=== PATIENT | female | born 2000 | race Caucasian/White ===

== ENCOUNTER 2019-10-24 21:03 | Emergency (ER) | payer SELFPAY ==
[2019-10-24 21:04] VITALS: BP 127/79; PULSE 108; RESP 16; TEMP 37.3; O2SAT 100; BMI 34.2
--- NOTE | 2019-10-24 21:28 | EKG12_ITS ---
Test Reason : DYSRHYTHMIA Blood Pressure : / mmHG Vent. Rate : 116 BPM Atrial Rate : 116 BPM P-R Int : 144 ms QRS Dur : 080 ms QT Int : 326 ms P-R-T Axes : 049 036 027 degrees QTc Int : 453 ms Sinus tachycardia Otherwise normal ECG Confirmed by BHARGAV PRESTON, JACKLYN ([id number]), film editor supervisor BRET LAST ([id number]) on 10/29/2019 11:29:14 AM Referred By: EMILY Confirmed By:JACKLYN DURANT MD
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
[2019-10-24] MEDS: Diphth,Pertuss(Acell),Tet Vac 0.5 ML Vial IM (22:06)
[2019-10-24 22:20] LABS: Absolute Lymphocyte Count 1.88 X10^3/uL (0.83-4.51); Basophil# 0.02 X10^3/uL; Basophil% 0.2 % (0-1); Eosinophil# 0.02 X10^3/uL; Eosinophils% 0.2 % (0-5); Hematocrit 35.6 % (37-47); Hemoglobin 11.2 g/dL (12.0-15.0); Lymphocyte # 1.88 X10^3/ul (4.0); Lymphocyte % 19.5 % (19-41); Mean Corp Hgb Conc 31.5 g/dL (32-36); Mean Corpuscular Hgb 27.7 pg (27.0-32.0); Mean Corpuscular Volume 87.9 fL (81-99); Mean Platelet Vol. 10.1 fl (6.2-12.0); Monocyte# 0.73 X10^3/uL; Monocyte% 7.6 % (0-10); NRBC Flagged by Analyzer 0 % (0-5); Neutrophil # 6.95 X10^3/uL (2.7-7.7); Neutrophil % 72.1 % (47-70); Platelet Count 255 K/mm3 (150-450); RBC Distribution Width CV 12.3 % (11.6-14.6); RBC Distribution Width SD 39.6 fl (35.1-43.9); Red Blood Count 4.05 M/mm3 (4.2-5.4); White Blood Count 9.6 K/mm3 (4.4-11.0)
[2019-10-24 22:38] LABS: Internal QC Validated? YES +Cl - CLEAR BKGD; Pregnancy, Serum, hCG Quali. NEGATIVE Negative
[2019-10-24 22:41] LABS: Anion Gap 7 (5-15); BUN 14 mg/dL (7-18); BUN/Creat Ratio 15.1 RATIO (10-20); Calcium,Total 8.7 mg/dL (8.5-10.1); Chloride 106 mmol/L (98-107); Creatinine, Serum 0.93 mg/dL (0.55-1.02); EST Glomerular Filtration Rate 81 mL/min (>60); Est Glom Filt Rate - Afr Amer 99 mL/min (>60); Estimated Creatinine Clearance 86.83 ml/min; Glucose 98 mg/dL (74-106); Potassium 3.2 mmol/L (3.5-5.1); Sodium Level 139 mmol/L (136-145)
[2019-10-24 23:42] VITALS: BP 130/74; PULSE 109; RESP 18; O2SAT 98
[2019-10-24 23:44] LABS: Bacteria 0 SEEN /hpf (None Seen); Mucous, Urine 0 SEEN /hpf (<or=2+)
[2019-10-24 23:45] LABS: Color, Urine Yellow (Yellow); Glucose, Dipstick Normal (Normal); Leukocyte Esterase-Dipstick 100 /ul (Negative); Nitrite-Dipstick Negative (Negative); Occult Blood-Urine 25 /ul (Negative); Protein-Dipstick 15 mg/dl (Negative); Urine Bilirubin Dipstick Negative (Negative); Urine Clarity Sl. Cloudy (Clear); Urine Urobilinogen Normal (Normal)
[2019-10-25 00:03] LABS: Ketone-Dipstick 150 mg/dl (Negative)
[2019-10-25 00:20] LABS: Red Blood Cells-Urine 5-10 SEEN /hpf (0-5); Squamous Epithelial Cells - UA 25-50 SEEN /hpf (5-10); White Blood Cells 10-25 SEEN /hpf (0-5)
[2019-10-25 00:29] VITALS: BP 113/68; PULSE 101; RESP 16; O2SAT 98
== END 2019-10-25 01:02 | disposition home or self-care (01) ==
PROVIDERS: Emergency Provider Emergency Medicine
DX: S06.0X9A Concussion with loss of consciousness of unspecified duration, initial encounter (principal); S37.012A Minor contusion of left kidney, initial encounter; S16.1XXA Strain of muscle, fascia and tendon at neck level, initial encounter; S30.1XXA Contusion of abdominal wall, initial encounter; S20.219A Contusion of unspecified front wall of thorax, initial encounter; S60.416A Abrasion of right little finger, initial encounter; V43.62XA Car passenger injured in collision with other type car in traffic accident, initial encounter; Y93.9 Activity, unspecified; Y92.9 Unspecified place or not applicable; Y99.9 Unspecified external cause status; Z23 Encounter for immunization; E66.9 Obesity, unspecified; Z97.5 Presence of (intrauterine) contraceptive device
CPT/HCPCS: 70450; 71045; 72125; 74177; 80048; 81001; 84703; 85025; 90471; 90715; 93005; 99285; Q9967; A4216

== ENCOUNTER 2020-12-17 21:50 | Emergency (ER) | payer OTHER, SELFPAY ==
[2020-12-17 21:50] VITALS: BP 137/77; PULSE 98; RESP 16; TEMP 36.1; O2SAT 100; BMI 35.4
--- NOTE | 2020-12-17 22:37 | CT_ITS ---
EXAM: CT Head Without Intravenous Contrast CLINICAL INDICATION: 20 years old, Female; headache TECHNIQUE: Multiple axial images were obtained of the head without intravenous contrast. This CT exam was performed using one or more of the following dose reduction techniques: automated exposure control, adjustment of the mA and/or kV according to patient size, and/or use of iterative reconstruction technique. This report was created using [employer] report generation technology. COMPARISON: None. FINDINGS: Brain and extra-axial spaces: Unremarkable. No intra- or extra-axial hemorrhage. No evidence of acute infarct. No intracranial mass or mass effect. There is preservation of the gaona/white matter interface. Posterior fossa structures are unremarkable. Ventricles are appropriate for age. No hydrocephalus. Basal cisterns are patent. Bones/joints: Unremarkable. No discrete lytic or blastic abnormalities. Sinuses: Unremarkable as visualized. Clear. Mastoid air cells: Unremarkable. Clear. Orbits: Visualized globes, extraocular muscles, optic nerves and retrobulbar fat appear unremarkable. CT/Brain/Head without Contrast IMPRESSION: Negative head/brain CT without intravenous contrast. Electronically Signed: Yaakov Medina MD at 0:25 EDT Tel , Service support ,
--- NOTE | 2020-12-17 22:38 | EX.ED.VIS.HA ---
HPI History of Present Illness Chief Complaint: Headache Informant: patient Onset/Context/Timing Onset: Weeks (2) Context: Sudden and Onset Timing: Continuous and Waxes and wanes (w/ OTC meds) Quality -Headache: Positive for Throbbing Location: bifrontal retroorbital Current Severity: 8/10 Maximum Severity: Severe Associated Symptoms/Injury Associated Symptoms: Positive for Nausea and Blurred Vision; Negative for Fever, Vomiting, Sore Throat, Sinus Pressure, Numbness, Tingling, Preceding Aura, Photophobia and Visual Loss Injury - COLL[place]O: Negative for Direct Trauma, Fall and Assault Narrative Narrative: Patient has had headaches since she was 13 years old she states, but this 1 is different, even when it started. Started suddenly 2 weeks ago, did not feel like a thunderclap but was suddenly severe mostly on the right side of her head including retro-orbital area. For the most part the last 2 weeks it has been bilateral frontal retro-orbital worse on the right, sometimes associated with blurry vision and today nausea, she is been taking Tylenol and ibuprofen off-and-on for that same period of time and it will not go away. She denies any focal peripheral neurologic symptoms. No stiff neck or confusion. Vision does get back to normal intermittently. [facility] Medical History Migraines Home Medications metoclopramide HCl 10 mg PO .q4-6h PRN #20 tab 12/18/20 [Rx Last Taken Unknown] Allergy/AdvReac Type Severity Reaction Status Date / Time No Known Allergies Allergy Verified 12/17/20 21:50 Social History Smoking Status: Never smoker ROS ROS ED Constitutional Constitutional ED: Denies chills or fever(s) Eyes Eyes: Reports blurry vision; Denies diplopia ENT ENT ED: Denies ear pain or sore throat Cardiovascular Cardiovascular: Denies chest pain or palpitations Respiratory/Chest Respiratory/Chest: Denies cough or dyspnea Gastrointestinal Gastrointestinal: Reports nausea; Denies abdominal pain, diarrhea or vomiting Genitourinary Genitourinary ED: Denies dysuria or urinary frequency Musculoskeletal Musculoskeletal: Denies back pain or myalgias Integumentary Denies abscess or rash Neurologic Neurologic: Reports headache(s); Denies paresthesias or weakness EXAM Physical Exam Const Vital Signs: 12/17/20 21:50 Temperature 96.9 F L Temperature Source Temporal Pulse Rate 98 Respiratory Rate 16 Blood Pressure 137/77 H Blood Pressure Mean 97 Pulse Ox 100 Oxygen Delivery Method Room Air Positive well nourished, well developed, alert and oriented x3 General Appearance ED: well developed and NAD HEENT Reports normocephalic and moist mucous membranes atraumatic Mouth ED: Yes oral and palatal mucosa normal Mouth: oral and palatal mucosa normal Throat: posterior oropharynx normal Eyes PERRL, EOMs intact bilaterally and conjunctivae normal Eyes Narrative: no photophobia Neck no lymphadenopathy, supple and no meningeal signs Resp normal respiratory effort and clear to auscultation bilaterally GI non-tender and non-distended Palpation: soft Extremity normal to inspection and full ROM Neuro oriented x3 and CN's II-XII intact bilaterally Sensorium / Orientation: awake and alert Speech: speech normal Gait (Neuro): normal gait Motor Exam: strength 5/5 throughout Psych mental status grossly normal Skin Lesions: no lesions Rashes: no rashes MDM MDM MDM Narrative Medical decision making narrative: Head CT and a BMP mostly to check her calcium level were obtained, they are normal. After Reglan and Toradol, she feels much better and had no adverse effects from this. She is willing to go home. Will prescribe her some Reglan to use as needed if the headache recurs, and will refer her to neurology given her longstanding history of headaches, she may benefit from preventative medications. Lab Data Attestation: I reviewed the patient's lab results. Labs: Laboratory Results - last 24 hr 12/17/20 23:03 Sodium 139 Potassium 3.5 Chloride 106 Carbon Dioxide 28.0 Anion Gap 5 BUN 11 Creatinine 0.86 Estim Creat Clear Calc 93.11 Est GFR (MDRD) Af Amer 107 Est GFR (MDRD) Non-Af 89 BUN/Creatinine Ratio 12.9 Glucose 106 Calcium 9.2 Radiography Diagnostic Testing: Clinical Impression(s) from Imaging Studies Brain CT 12/17/20 22:37 IMPRESSION: Negative head/brain CT without intravenous contrast. Electronically Signed: Yaakov Medina MD at 0:25 EDT Tel , Service support , Discharge Plan Triage Chief Complaint: Headache ED Provider: Curt Saini Dx/Rx/DC Orders Clinical Impression: Cephalgia Instructions: Understanding Headache Pain Prescriptions: New metoclopramide HCl [metoclopramide HCl] 10 MG tablet 10 mg PO .q4-6h PRN (Reason: Headache or nausea) Qty: 20 RF: 0 Primary Care Provider: Care Physician,No Primary Referrals: Omkar Marks MD [STAFF PHYSICIAN] - (call for appt) Care Physician,No Primary [Primary Care Provider] - Disposition Disposition: Home, Self Care
[2020-12-17] MEDS: Ketorolac 30 MG/ML Syringe IV (23:09)
[2020-12-17] MEDS: Metoclopramide 10 MG/2 ML Vial IV (23:09)
[2020-12-17 23:30] LABS: Anion Gap 5 (5-15); BUN 11 mg/dL (7-18); BUN/Creat Ratio 12.9 RATIO (10-20); Calcium,Total 9.2 mg/dL (8.5-10.1); Chloride 106 mmol/L (98-107); Creatinine, Serum 0.86 mg/dL (0.55-1.02); EST Glomerular Filtration Rate 89 mL/min (>60); Est Glom Filt Rate - Afr Amer 107 mL/min (>60); Estimated Creatinine Clearance 93.11 ml/min; Glucose 106 mg/dL (74-106); Potassium 3.5 mmol/L (3.5-5.1); Sodium Level 139 mmol/L (136-145)
== END 2020-12-18 00:49 | disposition home or self-care (01) ==
PROVIDERS: Emergency Provider Emergency Medicine
DX: R51.9 Headache, unspecified (principal); H53.8 Other visual disturbances; R11.0 Nausea
CPT/HCPCS: 70450; 80048; 96374; 96375; 99284; A4216